=== PATIENT | male | born 1995 | race Hispanic/Latino ===

== ENCOUNTER 2025-02-28 20:11 | Emergency (ER) | payer OTHER, SELFPAY ==
--- OUTSIDE RECORDS SUMMARY | 2025-02-28 20:17 | XMS REPORT | Continuity of Care Document ---
Author Name Unknown Address [address] [facility] [address] [place] [address] [facility] Address [address] [facility] [address] [place] [address] Care Team Providers Care Roller Print Tender Name Role Phone Tanya Rivas NP Primary Care Physician VISIT, NURSE Attending Clinician Unavailable Allergies, Adverse Reactions, Alerts Allergy Name Allergy Type Status Severity Reaction(s) Onset Date Inactive Date Treating Clinician Comments Source amoxcill in (Not Checked) [facility] to adverse reaction to drug Active 2023-07 0-02 00:00: 00 Jefferson Escoto Penicill ins [facility] to adverse reaction to drug Active 3-13 00:00: 00 Jefferson Escoto Penicill ins - CLASS [facility] to adverse reaction to drug Active 2-19 00:00: 00 Jefferson Escoto Medications Ordered Medication Name Filled Medication Name Start Date Stop Date Current Medication? Ordering Clinician Indication Dosage Frequency Signature (SIG) Comments Components Source lamotrigine 25 mg tablet 6- 00:00: 00 Yes 2mg Jefferson Escoto bupropion HCl XL 150 mg 24 hr tablet, extended release -30 00:00: 00 Yes 1mg Jefferson Escoto trazodone 150 mg tablet 6-30 00:00: 00 Yes 1mg Jefferson Escoto lamotrigine 25 mg tablet 0 6-06 00:00: 00 Yes mg Jefferson Escoto trazodone 150 mg tablet 0 6-06 00:00: 00 Yes 1mg Jefferson Escoto losartan 100 mg tablet 2024-0 5-12 00:00: 00 Yes 1mg Jefferson Escoto losartan 100 mg tablet 2024-0 4-11 00:00: 00 Yes 1mg Jefferson Escoto losartan 50 mg tablet 2025-0 3-10 00:00: 00 Yes 1mg Jefferson Escoto propranolol 10 mg tablet 2023-07- 00:00: 00 Yes 1mg Jefferson Escoto trazodone 150 mg tablet 2023-07- 00:00: 00 Yes 1mg Jefferson Escoto Abilify 10 mg tablet 2023-07 00:00: 00 Yes 1mg Jefferson Escoto propranolol 10 mg tablet 2023-07- 00:00: 00 Yes 1mg Jefferson Escoto trazodone 100 mg tablet 2023-07 00:00: 00 Yes 1mg Jefferson Escoto Abilify 10 mg tablet 2023-07 0- 00:00: 00 Yes 1mg Jefferson Escoto propranolol 10 mg tablet 0 8- 00:00: 00 Yes 1mg Jefferson Escoto trazodone 50 mg tablet 0 8- 00:00: 00 Yes 51mg Jefferson Escoto aripiprazol e 5 mg tablet 0 8-30 00:00: 00 Yes 15mg Jefferson Escoto trazodone 50 mg tablet 2023-0 7-20 00:00: 00 Yes 51mg Jefferson Escoto aripiprazol e 5 mg tablet 2023-0 -20 00:00: 00 Yes 15mg Jefferson Escoto trazodone 50 mg tablet 2023-0 -19 00:00: 00 Yes 51mg Jefferson Escoto aripiprazol e 5 mg tablet 2023-0 -19 00:00: 00 Yes 15mg Jefferson Escoto trazodone 50 mg tablet 2023-0 7-18 00:00: 00 Yes 51mg Jefferson Escoto aripiprazol e 5 mg tablet 2023-0 7-18 00:00: 00 Yes 15mg Jefferson Escoto aripiprazol e 5 mg tablet 2023-0 7-17 00:00: 00 Yes 15mg Jefferson Escoto Abilify 10 mg tablet 2023-0 6-27 00:00: 00 Yes mg Jefferson Escoto TAKE 1/2 TABLET AT BEDTIME. 2023-0 3-13 00:00: 00 05-10 00:00 :00 No 50 Jefferson Escoto TAKE 1 CAPSULE BY MOUTH DAILY 10-05 00:00: 00 12-02 00:00 :00 No 20 Jefferson Escoto losartan 50 mg tablet 09-28 00:00: 00 Yes 1mg Jefferson Escoto hydroxyzine HCl 25 mg tablet 09-28 00:00: 00 Yes 1mg Jefferson Escoto Prozac 10 mg capsule 09-28 00:00: 00 Yes 1mg Jefferson Escoto TAKE 1 TAB EVERY 6 HOURS NEEDED FOR ANXIETY 09-22 00:00: 00 12-02 00:00 :00 No 25 Jefferson Escoto TAKE ONE TABLET BY MOUTH DAILY 09-22 00:00: 00 12-02 00:00 :00 No 10 Jefferson Escoto TAKE 1 TABLET DAILY. 09-13 00:00: 00 Yes 50 Jefferson Escoto Vital Signs Vital Name Observation Time Observation Value Comments S elsy BP Systolic 2025-02-13 15:42:00 145 mm[Hg] Step hen Aziza Escoto BP Diastolic 2025-02-13 15:42:00 96 mm[Hg] Travis phen Aziza Escoto Weight Measured 2025-02-13 15:42:00 272.00 pounds Jefferson Escoto Height Measured 2025-02-13 15:42:00 69.69 inches Jefferson Escoto Body Temperature 2025-02-13 15:42:00 97.90 degrees Jefferson Escoto Heart Rate 2025-02-13 15:42:00 74.00 /min Ashlee en F Jevon Respiratory Rate 2025-02-13 15:42:00 Jefferson Aziza Escoto BP Systolic 2024-12-04 09:35:00 128 mm[Hg] Step hen Aziza Escoto BP Diastolic 2024-12-04 09:35:00 92 mm[Hg] Travis phen Aziza Escoto Weight Measured 2024-12-04 09:35:00 273.80 pounds Jefferson Escoto Height Measured 2024-12-04 09:35:00 69.69 inches Jefferson Escoto Body Temperature 2024-12-04 09:35:00 98.20 degrees Jefferson Escoto Heart Rate 2024-12-04 09:35:00 61.00 /min Ashlee en F Jevon Respiratory Rate 2024-12-04 09:35:00 18.00 /min Jefferson F Jevon BP Systolic 2024-11-27 08:30:00 139 mm[Hg] Step hen F Jevon BP Diastolic 2024-11-27 08:30:00 94 mm[Hg] Travis phen F Jevon Weight Measured 2024-11-27 08:30:00 274.20 pounds Jefferson F Jevon Height Measured 2024-11-27 08:30:00 69.69 inches Jefferson F Jevon Body Temperature 2024-11-27 08:30:00 97.90 degrees Jefferson F Jevon Heart Rate 2024-11-27 08:30:00 62.00 /min Ashlee en F Jevon Respiratory Rate 2024-11-27 08:30:00 Jefferson F Jevon BP Systolic 2024-11-03 09:27:00 144 mm[Hg] Step hen F Jevon BP Diastolic 2024-11-03 09:27:00 106 mm[Hg] Travis phen F Jevon Weight Measured 2024-11-03 09:27:00 272.00 pounds Jefferson F Jevon Height Measured 2024-11-03 09:27:00 69.69 inches Jefferson F Jevon Body Temperature 2024-11-03 09:27:00 Jefferson F Jevon Heart Rate 2024-11-03 09:27:00 65.00 /min Ashlee en F Jevon Respiratory Rate 2024-11-03 09:27:00 18.00 /min Jefferson F Jevon BP Systolic 2024-10-09 16:41:00 139 mm[Hg] Step hen F Jevon BP Diastolic 2024-10-09 16:41:00 102 mm[Hg] Travis phen F Jevon Weight Measured 2024-10-09 16:41:00 268.80 pounds Jefferson F Jevon Height Measured 2024-10-09 16:41:00 69.69 inches Jefferson F Jevon Body Temperature 2024-10-09 16:41:00 98.70 degrees Jefferson F Jevon Heart Rate 2024-10-09 16:41:00 110.00 /min Step hen F Jevon Respiratory Rate 2024-10-09 16:41:00 14.00 /min Jefferson F Jevon BP Systolic 2024-10-02 15:08:00 152 mm[Hg] Step hen F Jevon BP Diastolic 2024-10-02 15:08:00 108 mm[Hg] Travis phen F Jevon Weight Measured 2024-10-02 15:08:00 269.60 pounds Jefferson F Jevon Height Measured 2024-10-02 15:08:00 69.69 inches Jefferson F Jevon Body Temperature 2024-10-02 15:08:00 98.10 degrees Jefferson F Jevon Heart Rate 2024-10-02 15:08:00 82.00 /min Ashlee en F Jevon Respiratory Rate 2024-10-02 15:08:00 14.00 /min Jefferson F Jevon BP Systolic 2023-09-29 08:08:00 137 mm[Hg] Step hen F Jevon BP Diastolic 2023-09-29 08:08:00 106 mm[Hg] Travis phen F Jevon Weight Measured 2023-09-29 08:08:00 267.20 pounds Jefferson F Jevon Height Measured 2023-09-29 08:08:00 69.69 inches Jefferson F Jevon Body Temperature 2023-09-29 08:08:00 98.10 degrees Jefferson F Jevon Heart Rate 2023-09-29 08:08:00 62.00 /min Ashlee en F Jevon Respiratory Rate 2023-09-29 08:08:00 18.00 /min Jefferson F Jevon BP Systolic 2023-09-22 10:07:00 151 mm[Hg] Step hen F Jevon BP Diastolic 2023-09-22 10:07:00 95 mm[Hg] Travis phen F Jevon Weight Measured 2023-09-22 10:07:00 263.20 pounds Jefferson F Jevon Height Measured 2023-09-22 10:07:00 69.69 inches Jefferson F Jevon Body Temperature 2023-09-22 10:07:00 98.30 degrees Jefferson F Jevon Heart Rate 2023-09-22 10:07:00 76.00 /min Ashlee en F Jevon Respiratory Rate 2023-09-22 10:07:00 18.00 /min Jefferson F Jevon BP Systolic 2023-09-13 14:20:00 156 mm[Hg] Step hen F Jevon BP Diastolic 2023-09-13 14:20:00 102 mm[Hg] Travis phen F Jevon Weight Measured 2023-09-13 14:20:00 260.80 pounds Jefferson Escoto Height Measured 2023-09-13 14:20:00 70.50 inches Jefferson Escoto Body Temperature 2023-09-13 14:20:00 98.00 degrees Jefferson Escoto Heart Rate 2023-09-13 14:20:00 74.00 /min Ashlee Escoto Respiratory Rate 2023-09-13 14:20:00 18.00 /min Jefferson Escoto Encounters Start Date/Time End Date/Time Encounter Type Admission Type Attending [facility] Care Department Encounter ID Source 2022-08-05 12:18:20 Outpatient [facility] [id number] [facility] 2025-02-19 10:45:01 2025-02-19 10:45:01 Outpatient SFA SFA [id number] Jefferson Escoto 2025-02-14 08:45:42 2025-02-14 08:45:42 Outpatient SFA SFA [id number] Jefferson Escoto 2025-02-13 15:38:48 2025-02-13 15:38:48 Outpatient SFA SFA [id number] Jefferson Escoto 2025-02-13 00:00:00 2025-02-13 00:00:00 Outpatient Visit SFA [id number] Jefferson Escoto 2025-01-19 11:16:53 2025-01-19 11:16:53 Outpatient SFA SFA [id number] Jefferson Escoto 2024-12-29 14:26:28 2024-12-29 14:26:28 Outpatient SFA SFA [id number] Jefferson Escoto 2024-12-08 10:43:54 2024-12-08 10:43:54 Outpatient SFA SFA [id number] Jefferson Escoto 2024-12-04 09:29:32 2024-12-04 09:29:32 Outpatient SFA SFA [id number] Jefferson Escoto 2024-12-04 00:00:00 2024-12-04 00:00:00 Outpatient Visit SFA [id number] Jefferson Escoto 2024-11-27 08:20:06 2024-11-27 08:20:06 Outpatient SFA SFA [id number] Jefferson Escoto 2024-11-27 00:00:00 2024-11-27 00:00:00 Outpatient Visit SFA [id number] Jefferson Escoto 2024-11-24 10:47:28 2024-11-24 10:47:28 Outpatient SFA SFA [id number] Jefferson Escoto 2024-11-13 09:42:32 2024-11-13 09:42:32 Outpatient SFA SFA [id number] Jefferson Escoto 2024-11-10 11:57:02 2024-11-10 11:57:02 Outpatient SFA SFA [id number] Jefferson Escoto 2024-11-03 09:22:26 2024-11-03 09:22:26 Outpatient SFA SFA [id number] Jefferson Escoto 2024-11-03 00:00:00 2024-11-03 00:00:00 Outpatient Visit SFA [id number] Jefferson Escoto 2024-10-23 16:05:29 2024-10-23 16:05:29 Outpatient SFA SFA [id number] Jefferson Escoto 2024-10-20 11:15:17 2024-10-20 11:15:17 Outpatient SFA SFA [id number] Jefferson Escoto 2024-10-09 16:37:32 2024-10-09 16:37:32 Outpatient SFA SFA [id number] Jefferson Escoto 2024-10-09 00:00:00 2024-10-09 00:00:00 Outpatient Visit SFA [id number] Jefferson Escoto 2024-10-06 11:18:15 2024-10-06 11:18:15 Outpatient SFA SFA [id number] Jefferson Escoto 2024-10-03 08:33:05 2024-10-03 08:33:05 Outpatient SFA SFA [id number] Jefferson Escoto 2024-10-02 14:31:42 2024-10-02 14:31:42 Outpatient SFA SFA [id number] Jefferson Escoto 2024-10-02 00:00:00 2024-10-02 00:00:00 Outpatient Visit [facility] [id number] Jefferson Escoto 2024-02-16 10:48:30 2024-02-16 10:48:30 Outpatient SFA SFA [id number] Jefferson Escoto 2023-10-14 08:03:56 2023-10-14 08:03:56 Outpatient SFA SFA [id number] Jefferson Escoto 2023-10-06 10:27:20 2023-10-06 10:27:20 Outpatient SFA SFA [id number] Jefferson Escoto 2023-09-29 07:55:34 2023-09-29 07:55:34 Outpatient SFA SFA [id number] Jefferson Escoto 2023-09-22 10:00:51 2023-09-22 10:00:51 Outpatient SFA SFA [id number] Jefferson Escoto 2023-09-15 09:30:24 2023-09-15 09:30:24 Outpatient SFA SFA [id number] Jefferson Escoto 2023-09-13 14:09:37 2023-09-13 14:09:37 Outpatient SFA SFA [id number] Jefferson Escoto 2023-09-13 00:00:00 2023-09-13 00:00:00 Outpatient Visit [facility] [id number] Jefferson Escoto 2019-01-11 13:00:00 2019-01-11 13:00:00 Appointmen t; VISIT, NURSE VISIT, NURSE [facility] [id number] [place] [facility] Results Test Description Test Time Test Comments Results Result Co mments Source Jefferson F AustinHIV 1/2 AB DIFF (SUPPLEMENTAL USE ONLY) [ADDED]2024-12-03 00:00:00* Test Item Value Reference Range Interpretation Comme nts HIV 1 ANTIBODY (test code = 46380-4) NEGATIVE HIV 2 ANTIBODY (test code = 59043-7) NEGATIVE Jefferson F AustinHIV 1 RNA, QL REAL TIME PCR [ADDED]2024-12-03 00:00:00* Test Item Value Reference Range Interpretation Comme nts HIV 1 RNA, QL REAL TIME PCR (test code = 95712-1) Not Detected Jefferson F AustinHIV 1/2 ANTIGEN/ANTIBODY,FOURTH GENERATION [id number] 00:00:00* Test Item Value Reference Range Interpretation Comme nts HIV AG/AB, 4TH GEN (test code = 42484-7) REPEATEDLY REACTIVE Jefferson F AustinHIV 1/2 AB DIFF (SUPPLEMENTAL USE ONLY) [ADDED]2024-12-03 00:00:00* Test Item Value Reference Range Interpretation Comme nts HIV 1 ANTIBODY (test code = 71901-1) NEGATIVE HIV 2 ANTIBODY (test code = 13471-3) NEGATIVE [facility] F AustinHIV 1 RNA, QL REAL TIME PCR [ADDED]2024-12-03 00:00:00* Test Item Value Reference Range Interpretation Comme nts HIV 1 RNA, QL REAL TIME PCR (test code = 86335-1) Not Detected Jefferson F AustinHIV 1 RNA, QL [id number] 00:00:00* Test Item Value Reference Range Interpretation Comme nts HIV 1 RNA, QL REAL TIME PCR (test code = 44930-7) Not Detected Jefferson F AustinHIV 1 RNA, QL [id number] 00:00:00* Test Item Value Reference Range Interpretation Comme nts HIV 1 RNA, QL REAL TIME PCR (test code = 03235-3) Not Detected Jefferson F AustinC-REACTIVE [id number] 00:00:00* Test Item Value Reference Range Interpretation Comme nts C-REACTIVE PROTEIN (test cod e = 1988-5) 14.4 mg/L Jefferson F AustinANA SCREEN, IFA, W/REFL TITER AND [id number] 00:00:00* Test Item Value Reference Range Interpretation Comme nts DANY SCREEN, IFA (test code = 89087-6) NEGATIVE Jefferson F AustinRHEUMATOID [id number] 00:00:00* Test Item Value Reference Range Interpretation Comme nts RHEUMATOID FACTOR (test code = 96107-7) <10 IU/mL Jefferson F AustinSED RATE BY MODIFIED WESTERGREN [ADDED]2024-11-15 00:00:00* Test Item Value Reference Range Interpretation Comme nts SED RATE BY MODIFIED EVELINERG RUTH (test code = 4537-7) 6 mm/h Jefferson F AustinC-REACTIVE [id number] 00:00:00* Test Item Value Reference Range Interpretation Comme nts C-REACTIVE PROTEIN (test cod e = 1987-11) 14.4 mg/L Jefferson F AustinANA SCREEN, IFA, W/REFL TITER AND [id number] 00:00:00* Test Item Value Reference Range Interpretation Comme nts DANY SCREEN, IFA (test code = 03458-0) NEGATIVE Jefferson F AustinRHEUMATOID [id number] 00:00:00* Test Item Value Reference Range Interpretation Comme nts RHEUMATOID FACTOR (test code = 56980-7) <10 IU/mL Jefferson F AustinSED RATE BY MODIFIED WESTERGREN [ADDED]2024-11-15 00:00:00* Test Item Value Reference Range Interpretation Comme nts SED RATE BY MODIFIED CARINA MIRANDA (test code = 4537-7) 6 mm/h Jefferson F AustinC-REACTIVE [id number] 00:00:00* Test Item Value Reference Range Interpretation Comme nts C-REACTIVE PROTEIN (test cod e = 1987-11) 14.4 mg/L Jefferson F AustinANA SCREEN, IFA, W/REFL TITER AND [id number] 00:00:00* Test Item Value Reference Range Interpretation Comme nts DANY SCREEN, IFA (test code = 61467-9) NEGATIVE Jefferson F AustinRHEUMATOID [id number] 00:00:00* Test Item Value Reference Range Interpretation Comme nts RHEUMATOID FACTOR (test code = 90869-0) <10 IU/mL Jefferson F AustinSED RATE BY MODIFIED WESTERGREN [ADDED]2024-11-15 00:00:00* Test Item Value Reference Range Interpretation Comme nts SED RATE BY MODIFIED EVELINERG RUTH (test code = 4537-7) 6 mm/h Jefferson F AustinHIV 1/2 ANTIGEN/ANTIBODY,FOURTH GENERATION [id number] 00:00:00* Test Item Value Reference Range Interpretation Comme nts HIV AG/AB, 4TH GEN (test code = 81922-7) REPEATEDLY REACTIVE Jefferson F AustinHIV 1/2 AB DIFF (SUPPLEMENTAL USE ONLY) [ADDED]2024-11-08 00:00:00* Test Item Value Reference Range Interpretation Comme nts HIV 1 ANTIBODY (test code = 12371-2) NEGATIVE HIV 2 ANTIBODY (test code = 21422-1) NEGATIVE Jefferson F AustinHIV 1 RNA, QL REAL TIME PCR [ADDED]2024-11-08 00:00:00* Test Item Value Reference Range Interpretation Comme nts HIV 1 RNA, QL REAL TIME PCR (test code = 31834-2) Not Detected Jefferson F AustinHIV 1/2 ANTIGEN/ANTIBODY,FOURTH GENERATION [id number] 00:00:00* Test Item Value Reference Range Interpretation Comme nts HIV AG/AB, 4TH GEN (test code = 18873-9) REPEATEDLY REACTIVE Jefferson F AustinHIV 1/2 AB DIFF (SUPPLEMENTAL USE ONLY) [ADDED]2024-11-08 00:00:00* Test Item Value Reference Range Interpretation Comme nts HIV 1 ANTIBODY (test code = 68367-4) NEGATIVE HIV 2 ANTIBODY (test code = 38789-5) NEGATIVE Jefferson F AustinHIV 1 RNA, QL REAL TIME PCR [ADDED]2024-11-08 00:00:00* Test Item Value Reference Range Interpretation Comme nts HIV 1 RNA, QL REAL TIME PCR (test code = 43493-4) Not Detected Jefferson F AustinHIV 1/2 ANTIGEN/ANTIBODY,FOURTH GENERATION [id number] 00:00:00* Test Item Value Reference Range Interpretation Comme nts HIV AG/AB, 4TH GEN (test code = 44259-6) REPEATEDLY REACTIVE Jefferson F AustinHIV 1/2 AB DIFF (SUPPLEMENTAL USE ONLY) [ADDED]2024-11-08 00:00:00* Test Item Value Reference Range Interpretation Comme nts HIV 1 ANTIBODY (test code = 13701-3) NEGATIVE HIV 2 ANTIBODY (test code = 99525-7) NEGATIVE Jefferson F AustinHIV 1 RNA, QL REAL TIME PCR [ADDED]2024-11-08 00:00:00* Test Item Value Reference Range Interpretation Comme nts HIV 1 RNA, QL REAL TIME PCR (test code = 83049-0) Not Detected Jefferson EscotoRPR (MONITOR) W/REFL [id number] 00:00:00* Test Item Value Reference Range Interpretation Comme nts RPR (MONITOR) W/REFL TITER ( test code = 95239-3) NON-REACTIVE Jefferson F JevonTRICHOMONAS VAGINALIS RNA QUALITATIVE TMA, [id number] 00:00:00* Test Item Value Reference Range Interpretation Comme nts TRICHOMONAS VAGINALIS RNA QUALITATIVE TMA, MALES (test code = 78940-6) NOT DETECTED Jefferson F AustinHIV 1/2 AB DIFF (SUPPLEMENTAL USE ONLY) [ADDED]2024-10-08 00:00:00* Test Item Value Reference Range Interpretation Comme nts HIV 1 ANTIBODY (test code = 00081-7) NEGATIVE HIV 2 ANTIBODY (test code = 18979-8) NEGATIVE Jefferson F AustinHIV 1 RNA, QL REAL TIME PCR [ADDED]2024-10-08 00:00:00* Test Item Value Reference Range Interpretation Comme nts HIV 1 RNA, QL REAL TIME PCR (test code = 50428-4) Not Detected Jefferson EscotoCHLAMYDIA/N. GONORRHOEAE RNA, [id number] 00:00:00* Test Item Value Reference Range Interpretation Comme nts CHLAMYDIA TRACHOMATIS RNA, T MA, UROGENITAL (test code = 88274-8) NOT DETECTED NEISSERIA GONORRHOEAE RNA, T MA, UROGENITAL (test code = 29011-6) NOT DETECTED Jefferson EscotoHEPATITIS PANEL, [id number] 00:00:00* Test Item Value Reference Range Interpretation Comme nts HEPATITIS A AB, TOTAL (test code = 97962-1) REACTIVE HEPATITIS B SURFACE ANTIBODY QL (test code = 25078-6) NON-REACTIVE HEPATITIS B SURFACE ANTIGEN (test code = 5196-1) NON-REACTIVE CONFIRMATION (test code = 7905-3) DNR HEPATITIS B CORE AB TOTAL (t est code = 26217-3) NON-REACTIVE HEPATITIS C ANTIBODY (test c ode = 80213-3) NON-REACTIVE Jefferson F AustinHIV 1/2 ANTIGEN/ANTIBODY,FOURTH GENERATION [id number] 00:00:00* Test Item Value Reference Range Interpretation Comme nts HIV AG/AB, 4TH GEN (test code = 78796-2) REPEATEDLY REACTIVE Jefferson EscotoRPR (MONITOR) W/REFL [id number] 00:00:00* Test Item Value Reference Range Interpretation Comme nts RPR (MONITOR) W/REFL TITER ( test code = 34763-9) NON-REACTIVE Jefferson EscotoTRICHOMONAS VAGINALIS RNA QUALITATIVE TMA, [id number] 00:00:00* Test Item Value Reference Range Interpretation Comme nts TRICHOMONAS VAGINALIS RNA QUALITATIVE TMA, MALES (test code = 21823-6) NOT DETECTED Jefferson Ervin AustinHIV 1/2 AB DIFF (SUPPLEMENTAL USE ONLY) [ADDED]2024-10-08 00:00:00* Test Item Value Reference Range Interpretation Comme nts HIV 1 ANTIBODY (test code = 81236-0) NEGATIVE HIV 2 ANTIBODY (test code = 22689-1) NEGATIVE Jefferson EscotoHIV 1 RNA, QL REAL TIME PCR [ADDED]2024-10-08 00:00:00* Test Item Value Reference Range Interpretation Comme nts HIV 1 RNA, QL REAL TIME PCR (test code = 84772-3) Not Detected Jefferson EscotoCHLAMYDIA/N. GONORRHOEAE RNA, [id number] 00:00:00* Test Item Value Reference Range Interpretation Comme nts CHLAMYDIA TRACHOMATIS RNA, T MA, UROGENITAL (test code = 30459-2) NOT DETECTED NEISSERIA GONORRHOEAE RNA, T MA, UROGENITAL (test code = 22293-7) NOT DETECTED Jefferson EscotoHEPATITIS PANEL, [id number] 00:00:00* Test Item Value Reference Range Interpretation Comme nts HEPATITIS A AB, TOTAL (test code = 56073-4) REACTIVE HEPATITIS B SURFACE ANTIBODY QL (test code = 67328-8) NON-REACTIVE HEPATITIS B SURFACE ANTIGEN (test code = 5196-1) NON-REACTIVE CONFIRMATION (test code = 7905-3) DNR HEPATITIS B CORE AB TOTAL (t est code = 95160-0) NON-REACTIVE HEPATITIS C ANTIBODY (test c ode = 10403-5) NON-REACTIVE Jefferson Ervin AustinHIV 1/2 ANTIGEN/ANTIBODY,FOURTH GENERATION [id number] 00:00:00* Test Item Value Reference Range Interpretation Comme nts HIV AG/AB, 4TH GEN (test code = 85458-2) REPEATEDLY REACTIVE Jefferson EscotoRPR (MONITOR) W/REFL [id number] 00:00:00* Test Item Value Reference Range Interpretation Comme nts RPR (MONITOR) W/REFL TITER ( test code = 09717-2) NON-REACTIVE Jefferson EscotoTRICHOMONAS VAGINALIS RNA QUALITATIVE TMA, [id number] 00:00:00* Test Item Value Reference Range Interpretation Comme nts TRICHOMONAS VAGINALIS RNA QUALITATIVE TMA, MALES (test code = 33575-4) NOT DETECTED Jefferson Ervin AustinHIV 1/2 AB DIFF (SUPPLEMENTAL USE ONLY) [ADDED]2024-10-08 00:00:00* Test Item Value Reference Range Interpretation Comme nts HIV 1 ANTIBODY (test code = 70578-4) NEGATIVE HIV 2 ANTIBODY (test code = 17667-9) NEGATIVE Jefferson EscotoHIV 1 RNA, QL REAL TIME PCR [ADDED]2024-10-08 00:00:00* Test Item Value Reference Range Interpretation Comme nts HIV 1 RNA, QL REAL TIME PCR (test code = 18022-5) Not Detected Jefferson EscotoCHLAMYDIA/N. GONORRHOEAE RNA, [id number] 00:00:00* Test Item Value Reference Range Interpretation Comme nts CHLAMYDIA TRACHOMATIS RNA, T MA, UROGENITAL (test code = 34264-5) NOT DETECTED NEISSERIA GONORRHOEAE RNA, T MA, UROGENITAL (test code = 15650-0) NOT DETECTED Jefferson EscotoHEPATITIS PANEL, [id number] 00:00:00* Test Item Value Reference Range Interpretation Comme nts HEPATITIS A AB, TOTAL (test code = 79070-2) REACTIVE HEPATITIS B SURFACE ANTIBODY QL (test code = 35938-7) NON-REACTIVE HEPATITIS B SURFACE ANTIGEN (test code = 5196-1) NON-REACTIVE CONFIRMATION (test code = 7905-3) DNR HEPATITIS B CORE AB TOTAL (t est code = 16079-7) NON-REACTIVE HEPATITIS C ANTIBODY (test c ode = 00092-9) NON-REACTIVE Jefferson Ervin AustinHIV 1/2 ANTIGEN/ANTIBODY,FOURTH GENERATION [id number] 00:00:00* Test Item Value Reference Range Interpretation Comme nts HIV AG/AB, 4TH GEN (test code = 34165-0) REPEATEDLY REACTIVE Jefferson EscotoRPR (MONITOR) W/REFL [id number] 00:00:00* Test Item Value Reference Range Interpretation Comme nts RPR (MONITOR) W/REFL TITER ( test code = 70853-2) NON-REACTIVE Jefferson EscotoTRICHOMONAS VAGINALIS RNA QUALITATIVE TMA, [id number] 00:00:00* Test Item Value Reference Range Interpretation Comme nts TRICHOMONAS VAGINALIS RNA QUALITATIVE TMA, MALES (test code = 65374-5) NOT DETECTED Jefferson Ervin AustinHIV 1/2 AB DIFF (SUPPLEMENTAL USE ONLY) [ADDED]2024-10-08 00:00:00* Test Item Value Reference Range Interpretation Comme nts HIV 1 ANTIBODY (test code = 50002-3) NEGATIVE HIV 2 ANTIBODY (test code = 11156-4) NEGATIVE Jefferson EscotoHIV 1 RNA, QL REAL TIME PCR [ADDED]2024-10-08 00:00:00* Test Item Value Reference Range Interpretation Comme nts HIV 1 RNA, QL REAL TIME PCR (test code = 11008-2) Not Detected Jefferson EscotoCHLAMYDIA/N. GONORRHOEAE RNA, [id number] 00:00:00* Test Item Value Reference Range Interpretation Comme nts CHLAMYDIA TRACHOMATIS RNA, T MA, UROGENITAL (test code = 88961-5) NOT DETECTED NEISSERIA GONORRHOEAE RNA, T MA, UROGENITAL (test code = 04761-9) NOT DETECTED Jefferson EscotoHEPATITIS PANEL, [id number] 00:00:00* Test Item Value Reference Range Interpretation Comme nts HEPATITIS A AB, TOTAL (test code = 31840-1) REACTIVE HEPATITIS B SURFACE ANTIBODY QL (test code = 29263-4) NON-REACTIVE HEPATITIS B SURFACE ANTIGEN (test code = 5196-1) NON-REACTIVE CONFIRMATION (test code = 7905-3) DNR HEPATITIS B CORE AB TOTAL (t est code = 43703-9) NON-REACTIVE HEPATITIS C ANTIBODY (test c ode = 63589-0) NON-REACTIVE Jefferson Ervin AustinHIV 1/2 ANTIGEN/ANTIBODY,FOURTH GENERATION [id number] 00:00:00* Test Item Value Reference Range Interpretation Comme nts HIV AG/AB, 4TH GEN (test code = 97195-0) REPEATEDLY REACTIVE Jefferson EscotoRPR (MONITOR) W/REFL [id number] 00:00:00* Test Item Value Reference Range Interpretation Comme nts RPR (MONITOR) W/REFL TITER ( test code = 86858-9) NON-REACTIVE Jefferson EscotoTRICHOMONAS VAGINALIS RNA QUALITATIVE TMA, [id number] 00:00:00* Test Item Value Reference Range Interpretation Comme nts TRICHOMONAS VAGINALIS RNA QUALITATIVE TMA, MALES (test code = 64522-9) NOT DETECTED Jefferson Ervin AustinHIV 1/2 AB DIFF (SUPPLEMENTAL USE ONLY) [ADDED]2024-10-08 00:00:00* Test Item Value Reference Range Interpretation Comme nts HIV 1 ANTIBODY (test code = 07985-3) NEGATIVE HIV 2 ANTIBODY (test code = 90713-8) NEGATIVE Jefferson EscotoHIV 1 RNA, QL REAL TIME PCR [ADDED]2024-10-08 00:00:00* Test Item Value Reference Range Interpretation Comme nts HIV 1 RNA, QL REAL TIME PCR (test code = 31667-9) Not Detected Jefferson EscotoCHLAMYDIA/N. GONORRHOEAE RNA, [id number] 00:00:00* Test Item Value Reference Range Interpretation Comme nts CHLAMYDIA TRACHOMATIS RNA, T MA, UROGENITAL (test code = 19733-0) NOT DETECTED NEISSERIA GONORRHOEAE RNA, T MA, UROGENITAL (test code = 39622-8) NOT DETECTED Jefferson EscotoHEPATITIS PANEL, [id number] 00:00:00* Test Item Value Reference Range Interpretation Comme nts HEPATITIS A AB, TOTAL (test code = 47489-5) REACTIVE HEPATITIS B SURFACE ANTIBODY QL (test code = 46116-5) NON-REACTIVE HEPATITIS B SURFACE ANTIGEN (test code = 5196-1) NON-REACTIVE CONFIRMATION (test code = 7905-3) DNR HEPATITIS B CORE AB TOTAL (t est code = 49435-0) NON-REACTIVE HEPATITIS C ANTIBODY (test c ode = 97661-6) NON-REACTIVE [facility] Ervin AustinHIV 1/2 ANTIGEN/ANTIBODY,FOURTH GENERATION [id number] 00:00:00* Test Item Value Reference Range Interpretation Comme nts HIV AG/AB, 4TH GEN (test code = 39112-1) REPEATEDLY REACTIVE Jefferson EscotoCOMPREHENSIVE METABOLIC [id number] 00:00:00* Test Item Value Reference Range Interpretation Comme nts GLUCOSE (test code = 2345-7) 88 mg/dL UREA NITROGEN (BUN) (test code = 3094-0) 8 mg/dL CREATININE (test code = 2160-0) 1.01 mg/dL EGFR (test code = 81834-9) 104 mL/min/1.73m2 BUN/CREATININE RATIO (test code = 3097-3) SEE NOTE: (calc) SODIUM (test code = 2951-2) 137 mmol/L POTASSIUM (test code = 2823-3) 4.3 mmol/L CHLORIDE (test code = 2075-0) 102 mmol/L CARBON DIOXIDE (test code = 2027-9) 31 mmol/L CALCIUM (test code = 74453-2) 9.7 mg/dL PROTEIN, TOTAL (test code = 2885-2) 7.6 g/dL ALBUMIN (test code = 1751-7) 4.7 g/dL GLOBULIN (test code = 08255-0) 2.9 g/dL(calc) ALBUMIN/GLOBULIN RATIO (test code = 1759-0) 1.6 (calc) BILIRUBIN, TOTAL (test code = 1975-2) 1.8 mg/dL ALKALINE PHOSPHATASE (test code = 6768-6) 93 U/L AST (test code = 1920-8) 19 U/L ALT (test code = 1742-6) 20 U/L Jefferson EscotoLIPID [id number] 00:00:00* Test Item Value Reference Range Interpretation Comme nts CHOLESTEROL, TOTAL (test cod e = 2093-3) 183 mg/dL HDL CHOLESTEROL (test code = 2085-9) 37 mg/dL TRIGLYCERIDES (test code = 2571-8) 196 mg/dL LDL-CHOLESTEROL (test code = 23233-9) 114 mg/dL(calc) CHOL/HDLC RATIO (test code = 9830-1) 4.9 (calc) NON HDL CHOLESTEROL (test code = 86909-9) 146 mg/dL(calc) Jefferson F AustinCOMPREHENSIVE METABOLIC [id number] 00:00:00* Test Item Value Reference Range Interpretation Comme nts GLUCOSE (test code = 2345-7) 88 mg/dL UREA NITROGEN (BUN) (test code = 3094-0) 8 mg/dL CREATININE (test code = 2160-0) 1.01 mg/dL EGFR (test code = 64105-9) 104 mL/min/1.73m2 BUN/CREATININE RATIO (test code = 3097-3) SEE NOTE: (calc) SODIUM (test code = 2951-2) 137 mmol/L POTASSIUM (test code = 2823-3) 4.3 mmol/L CHLORIDE (test code = 2075-0) 102 mmol/L CARBON DIOXIDE (test code = 2027-9) 31 mmol/L CALCIUM (test code = 26035-3) 9.7 mg/dL PROTEIN, TOTAL (test code = 2885-2) 7.6 g/dL ALBUMIN (test code = 1751-7) 4.7 g/dL GLOBULIN (test code = 75653-8) 2.9 g/dL(calc) ALBUMIN/GLOBULIN RATIO (test code = 1759-0) 1.6 (calc) BILIRUBIN, TOTAL (test code = 1975-2) 1.8 mg/dL ALKALINE PHOSPHATASE (test code = 6768-6) 93 U/L AST (test code = 1920-8) 19 U/L ALT (test code = 1742-6) 20 U/L Jefferson Ervin AustinLIPID [id number] 00:00:00* Test Item Value Reference Range Interpretation Comme nts CHOLESTEROL, TOTAL (test cod e = 2093-3) 183 mg/dL HDL CHOLESTEROL (test code = 2085-9) 37 mg/dL TRIGLYCERIDES (test code = 2571-8) 196 mg/dL LDL-CHOLESTEROL (test code = 74157-2) 114 mg/dL(calc) CHOL/HDLC RATIO (test code = 9830-1) 4.9 (calc) NON HDL CHOLESTEROL (test code = 55888-7) 146 mg/dL(calc) Jefferson EscotoCOMPREHENSIVE METABOLIC [id number] 00:00:00* Test Item Value Reference Range Interpretation Comme nts GLUCOSE (test code = 2345-7) 88 mg/dL UREA NITROGEN (BUN) (test code = 3094-0) 8 mg/dL CREATININE (test code = 2160-0) 1.01 mg/dL EGFR (test code = 18307-5) 104 mL/min/1.73m2 BUN/CREATININE RATIO (test code = 3097-3) SEE NOTE: (calc) SODIUM (test code = 2951-2) 137 mmol/L POTASSIUM (test code = 2823-3) 4.3 mmol/L CHLORIDE (test code = 2075-0) 102 mmol/L CARBON DIOXIDE (test code = 2027-9) 31 mmol/L CALCIUM (test code = 63858-0) 9.7 mg/dL PROTEIN, TOTAL (test code = 2885-2) 7.6 g/dL ALBUMIN (test code = 1751-7) 4.7 g/dL GLOBULIN (test code = 13065-1) 2.9 g/dL(calc) ALBUMIN/GLOBULIN RATIO (test code = 1759-0) 1.6 (calc) BILIRUBIN, TOTAL (test code = 1975-2) 1.8 mg/dL ALKALINE PHOSPHATASE (test code = 6768-6) 93 U/L AST (test code = 1920-8) 19 U/L ALT (test code = 1742-6) 20 U/L Jefferson EscotoLIPID [id number] 00:00:00* Test Item Value Reference Range Interpretation Comme nts CHOLESTEROL, TOTAL (test cod e = 2093-3) 183 mg/dL HDL CHOLESTEROL (test code = 2085-9) 37 mg/dL TRIGLYCERIDES (test code = 2571-8) 196 mg/dL LDL-CHOLESTEROL (test code = 79943-1) 114 mg/dL(calc) CHOL/HDLC RATIO (test code = 9830-1) 4.9 (calc) NON HDL CHOLESTEROL (test code = 74994-0) 146 mg/dL(calc) Jefferson EscotoCOMPREHENSIVE METABOLIC [id number] 00:00:00* Test Item Value Reference Range Interpretation Comme nts GLUCOSE (test code = 2345-7) 88 mg/dL UREA NITROGEN (BUN) (test code = 3094-0) 8 mg/dL CREATININE (test code = 2160-0) 1.01 mg/dL EGFR (test code = 48647-8) 104 mL/min/1.73m2 BUN/CREATININE RATIO (test code = 3097-3) SEE NOTE: (calc) SODIUM (test code = 2951-2) 137 mmol/L POTASSIUM (test code = 2823-3) 4.3 mmol/L CHLORIDE (test code = 2075-0) 102 mmol/L CARBON DIOXIDE (test code = 8-9) 31 mmol/L CALCIUM (test code = 35687-9) 9.7 mg/dL PROTEIN, TOTAL (test code = 2885-2) 7.6 g/dL ALBUMIN (test code = 1751-7) 4.7 g/dL GLOBULIN (test code = 37831-7) 2.9 g/dL(calc) ALBUMIN/GLOBULIN RATIO (test code = 1759-0) 1.6 (calc) BILIRUBIN, TOTAL (test code = 1975-2) 1.8 mg/dL ALKALINE PHOSPHATASE (test code = 6768-6) 93 U/L AST (test code = 1920-8) 19 U/L ALT (test code = 1742-6) 20 U/L Jefferson Ervin LebeauLIPID [id number] 00:00:00* Test Item Value Reference Range Interpretation Comme nts CHOLESTEROL, TOTAL (test cod e = 2093-3) 183 mg/dL HDL CHOLESTEROL (test code = 2085-9) 37 mg/dL TRIGLYCERIDES (test code = 2571-8) 196 mg/dL LDL-CHOLESTEROL (test code = 34743-3) 114 mg/dL(calc) CHOL/HDLC RATIO (test code = 9830-1) 4.9 (calc) NON HDL CHOLESTEROL (test code = 69499-6) 146 mg/dL(calc) Jefferson EscotoCOMPREHENSIVE METABOLIC [id number] 00:00:00* Test Item Value Reference Range Interpretation Comme nts GLUCOSE (test code = 2345-7) 88 mg/dL UREA NITROGEN (BUN) (test code = 3094-0) 8 mg/dL CREATININE (test code = 2160-0) 1.01 mg/dL EGFR (test code = 87465-6) 104 mL/min/1.73m2 BUN/CREATININE RATIO (test code = 3097-3) SEE NOTE: (calc) SODIUM (test code = 2951-2) 137 mmol/L POTASSIUM (test code = 2823-3) 4.3 mmol/L CHLORIDE (test code = 2075-0) 102 mmol/L CARBON DIOXIDE (test code = 2027-) 31 mmol/L CALCIUM (test code = 07862-3) 9.7 mg/dL PROTEIN, TOTAL (test code = 2885-2) 7.6 g/dL ALBUMIN (test code = 1751-7) 4.7 g/dL GLOBULIN (test code = 92748-4) 2.9 g/dL(calc) ALBUMIN/GLOBULIN RATIO (test code = 1759-0) 1.6 (calc) BILIRUBIN, TOTAL (test code = 1975-2) 1.8 mg/dL ALKALINE PHOSPHATASE (test code = 6768-6) 93 U/L AST (test code = 1920-8) 19 U/L ALT (test code = 1742-6) 20 U/L Jefferson Ervin LebeauLIPID [id number] 00:00:00* Test Item Value Reference Range Interpretation Comme nts CHOLESTEROL, TOTAL (test cod e = 2093-3) 183 mg/dL HDL CHOLESTEROL (test code = 2085-9) 37 mg/dL TRIGLYCERIDES (test code = 2571-8) 196 mg/dL LDL-CHOLESTEROL (test code = 84888-8) 114 mg/dL(calc) CHOL/HDLC RATIO (test code = 9830-1) 4.9 (calc) NON HDL CHOLESTEROL (test code = 86796-0) 146 mg/dL(calc) Jefferson Ervin JevonCOMPREHENSIVE METABOLIC [id number] 00:00:00* Test Item Value Reference Range Interpretation Comme nts GLUCOSE (test code = 2217) 104 MG/DL BUN (test code = 2208) 12 MG/DL CREATININE (test code = 2214) 0.97 MG/DL eGFR (2020 CKD-EPI) (test code = 30859) 110 ML/MIN/1.73 CALC BUN/CREAT (test code = 2235) 12 RATIO SODIUM (test code = 2231) 140 MEQ/L POTASSIUM (test code = 2228) 4.4 MEQ/L CHLORIDE (test code = 2215) 105 MEQ/L CARBON DIOXIDE (test code = 2206) 21 MEQ/L CALCIUM (test code = 2209) 9.3 MG/DL PROTEIN, TOTAL (test code = 2229) 7.0 G/DL ALBUMIN (test code = 2201) 4.7 G/DL CALC GLOBULIN (test code = 2240) 2.3 G/DL CALC A/G RATIO (test code = 2234) 2.0 RATIO BILIRUBIN, TOTAL (test code = 2207) 1.0 MG/DL ALKALINE PHOSPHATASE (test code = 2204) 102 U/L AST (test code = 2218) 29 U/L ALT (test code = 2219) 27 U/L Jefferson EscotoLIPID [id number] 00:00:00* Test Item Value Reference Range Interpretation Comme nts CHOLESTEROL (test code = 2210) 197 MG/DL TRIGLYCERIDES (test code = 2232) 117 MG/DL HDL CHOLESTEROL (test code = 2220) 43 MG/DL CALC LDL CHOL (test code = 2237) 132 MG/DL RISK RATIO LDL/HDL (test cod e = 2238) 3.07 RATIO Jefferson EscotoHEMOGLOBIN [id number] 00:00:00* Test Item Value Reference Range Interpretation Comme nts HEMOGLOBIN A1c (test code = 20531) 5.2 % Jefferson EscotoCOMPREHENSIVE METABOLIC [id number] 00:00:00* Test Item Value Reference Range Interpretation Comme nts GLUCOSE (test code = 2217) 104 MG/DL BUN (test code = 2208) 12 MG/DL CREATININE (test code = 2214) 0.97 MG/DL eGFR (2020 CKD-EPI) (test code = 36676) 110 ML/MIN/1.73 CALC BUN/CREAT (test code = 2235) 12 RATIO SODIUM (test code = 2231) 140 MEQ/L POTASSIUM (test code = 2228) 4.4 MEQ/L CHLORIDE (test code = 2215) 105 MEQ/L CARBON DIOXIDE (test code = 2206) 21 MEQ/L CALCIUM (test code = 2209) 9.3 MG/DL PROTEIN, TOTAL (test code = 2229) 7.0 G/DL ALBUMIN (test code = 2201) 4.7 G/DL CALC GLOBULIN (test code = 2240) 2.3 G/DL CALC A/G RATIO (test code = 2234) 2.0 RATIO BILIRUBIN, TOTAL (test code = 2207) 1.0 MG/DL ALKALINE PHOSPHATASE (test code = 2204) 102 U/L AST (test code = 2218) 29 U/L ALT (test code = 2219) 27 U/L Jefferson EscotoLIPID [id number] 00:00:00* Test Item Value Reference Range Interpretation Comme nts CHOLESTEROL (test code = 2210) 197 MG/DL TRIGLYCERIDES (test code = 2232) 117 MG/DL HDL CHOLESTEROL (test code = 2220) 43 MG/DL CALC LDL CHOL (test code = 2237) 132 MG/DL RISK RATIO LDL/HDL (test cod e = 2238) 3.07 RATIO Jefferson EscotoHEMOGLOBIN [id number] 00:00:00* Test Item Value Reference Range Interpretation Comme nts HEMOGLOBIN A1c (test code = 61660) 5.2 % Jefferson EscotoCOMPREHENSIVE METABOLIC [id number] 00:00:00* Test Item Value Reference Range Interpretation Comme nts GLUCOSE (test code = 2217) 104 MG/DL BUN (test code = 2208) 12 MG/DL CREATININE (test code = 2214) 0.97 MG/DL eGFR (2020 CKD-EPI) (test code = 66176) 110 ML/MIN/1.73 CALC BUN/CREAT (test code = 2235) 12 RATIO SODIUM (test code = 2231) 140 MEQ/L POTASSIUM (test code = 2228) 4.4 MEQ/L CHLORIDE (test code = 2215) 105 MEQ/L CARBON DIOXIDE (test code = 2206) 21 MEQ/L CALCIUM (test code = 2209) 9.3 MG/DL PROTEIN, TOTAL (test code = 2229) 7.0 G/DL ALBUMIN (test code = 2201) 4.7 G/DL CALC GLOBULIN (test code = 2240) 2.3 G/DL CALC A/G RATIO (test code = 2234) 2.0 RATIO BILIRUBIN, TOTAL (test code = 2207) 1.0 MG/DL ALKALINE PHOSPHATASE (test code = 2204) 102 U/L AST (test code = 2218) 29 U/L ALT (test code = 2219) 27 U/L Jefferson Ervin AustinLIPID [id number] 00:00:00* Test Item Value Reference Range Interpretation Comme nts CHOLESTEROL (test code = 2210) 197 MG/DL TRIGLYCERIDES (test code = 2232) 117 MG/DL HDL CHOLESTEROL (test code = 2220) 43 MG/DL CALC LDL CHOL (test code = 2237) 132 MG/DL RISK RATIO LDL/HDL (test cod e = 2238) 3.07 RATIO Jefferson EscotoHEMOGLOBIN [id number] 00:00:00* Test Item Value Reference Range Interpretation Comme nts HEMOGLOBIN A1c (test code = 02737) 5.2 % Jefferson EscotoCOMPREHENSIVE METABOLIC [id number] 00:00:00* Test Item Value Reference Range Interpretation Comme nts GLUCOSE (test code = 2217) 104 MG/DL BUN (test code = 2208) 12 MG/DL CREATININE (test code = 2214) 0.97 MG/DL eGFR (2020 CKD-EPI) (test code = 07283) 110 ML/MIN/1.73 CALC BUN/CREAT (test code = 2235) 12 RATIO SODIUM (test code = 2231) 140 MEQ/L POTASSIUM (test code = 2228) 4.4 MEQ/L CHLORIDE (test code = 2215) 105 MEQ/L CARBON DIOXIDE (test code = 2206) 21 MEQ/L CALCIUM (test code = 2209) 9.3 MG/DL PROTEIN, TOTAL (test code = 2229) 7.0 G/DL ALBUMIN (test code = 2201) 4.7 G/DL CALC GLOBULIN (test code = 2240) 2.3 G/DL CALC A/G RATIO (test code = 2234) 2.0 RATIO BILIRUBIN, TOTAL (test code = 2207) 1.0 MG/DL ALKALINE PHOSPHATASE (test code = 2204) 102 U/L AST (test code = 2218) 29 U/L ALT (test code = 2219) 27 U/L Jefferson Ervin AustinLIPID [id number] 00:00:00* Test Item Value Reference Range Interpretation Comme nts CHOLESTEROL (test code = 2210) 197 MG/DL TRIGLYCERIDES (test code = 2232) 117 MG/DL HDL CHOLESTEROL (test code = 2220) 43 MG/DL CALC LDL CHOL (test code = 2237) 132 MG/DL RISK RATIO LDL/HDL (test cod e = 2238) 3.07 RATIO Jefferson EscotoHEMOGLOBIN [id number] 00:00:00* Test Item Value Reference Range Interpretation Comme nts HEMOGLOBIN A1c (test code = 31164) 5.2 % Jefferson EscotoCOMPREHENSIVE METABOLIC [id number] 00:00:00* Test Item Value Reference Range Interpretation Comme nts GLUCOSE (test code = 2217) 104 MG/DL BUN (test code = 2208) 12 MG/DL CREATININE (test code = 2214) 0.97 MG/DL eGFR (2020 CKD-EPI) (test code = 49869) 110 ML/MIN/1.73 CALC BUN/CREAT (test code = 2235) 12 RATIO SODIUM (test code = 2231) 140 MEQ/L POTASSIUM (test code = 2228) 4.4 MEQ/L CHLORIDE (test code = 2215) 105 MEQ/L CARBON DIOXIDE (test code = 2206) 21 MEQ/L CALCIUM (test code = 2209) 9.3 MG/DL PROTEIN, TOTAL (test code = 2229) 7.0 G/DL ALBUMIN (test code = 2201) 4.7 G/DL CALC GLOBULIN (test code = 2240) 2.3 G/DL CALC A/G RATIO (test code = 2234) 2.0 RATIO BILIRUBIN, TOTAL (test code = 2207) 1.0 MG/DL ALKALINE PHOSPHATASE (test code = 2204) 102 U/L AST (test code = 2218) 29 U/L ALT (test code = 2219) 27 U/L Jefferson EscotoLIPID [id number] 00:00:00* Test Item Value Reference Range Interpretation Comme nts CHOLESTEROL (test code = 2210) 197 MG/DL TRIGLYCERIDES (test code = 2232) 117 MG/DL HDL CHOLESTEROL (test code = 2220) 43 MG/DL CALC LDL CHOL (test code = 2237) 132 MG/DL RISK RATIO LDL/HDL (test cod e = 2238) 3.07 RATIO Jefferson EscotoHEMOGLOBIN [id number] 00:00:00* Test Item Value Reference Range Interpretation Comme nts HEMOGLOBIN A1c (test code = 30546) 5.2 % Jefferson EscotoCOMPREHENSIVE METABOLIC [id number] 00:00:00* Test Item Value Reference Range Interpretation Comme nts GLUCOSE (test code = 2217) 104 MG/DL BUN (test code = 2208) 12 MG/DL CREATININE (test code = 2214) 0.97 MG/DL eGFR (2020 CKD-EPI) (test code = 76544) 110 ML/MIN/1.73 CALC BUN/CREAT (test code = 2235) 12 RATIO SODIUM (test code = 2231) 140 MEQ/L POTASSIUM (test code = 2228) 4.4 MEQ/L CHLORIDE (test code = 2215) 105 MEQ/L CARBON DIOXIDE (test code = 2206) 21 MEQ/L CALCIUM (test code = 2209) 9.3 MG/DL PROTEIN, TOTAL (test code = 2229) 7.0 G/DL ALBUMIN (test code = 2201) 4.7 G/DL CALC GLOBULIN (test code = 2240) 2.3 G/DL CALC A/G RATIO (test code = 2234) 2.0 RATIO BILIRUBIN, TOTAL (test code = 2207) 1.0 MG/DL ALKALINE PHOSPHATASE (test code = 2204) 102 U/L AST (test code = 2218) 29 U/L ALT (test code = 2219) 27 U/L Jefferson Aziza LebeauLIPID [id number] 00:00:00* Test Item Value Reference Range Interpretation Comme nts CHOLESTEROL (test code = 2210) 197 MG/DL TRIGLYCERIDES (test code = 2232) 117 MG/DL HDL CHOLESTEROL (test code = 2220) 43 MG/DL CALC LDL CHOL (test code = 2237) 132 MG/DL RISK RATIO LDL/HDL (test cod e = 2238) 3.07 RATIO Jefferson EscotoHEMOGLOBIN [id number] 00:00:00* Test Item Value Reference Range Interpretation Comme nts HEMOGLOBIN A1c (test code = 39054) 5.2 % Jefferson Ervin JevonCOMPREHENSIVE METABOLIC [id number] 00:00:00* Test Item Value Reference Range Interpretation Comme nts GLUCOSE (test code = 2217) 104 MG/DL BUN (test code = 2208) 12 MG/DL CREATININE (test code = 2214) 0.97 MG/DL eGFR (2020 CKD-EPI) (test code = 11453) 110 ML/MIN/1.73 CALC BUN/CREAT (test code = 2235) 12 RATIO SODIUM (test code = 2231) 140 MEQ/L POTASSIUM (test code = 2228) 4.4 MEQ/L CHLORIDE (test code = 2215) 105 MEQ/L CARBON DIOXIDE (test code = 2206) 21 MEQ/L CALCIUM (test code = 2209) 9.3 MG/DL PROTEIN, TOTAL (test code = 2229) 7.0 G/DL ALBUMIN (test code = 2201) 4.7 G/DL CALC GLOBULIN (test code = 2240) 2.3 G/DL CALC A/G RATIO (test code = 2234) 2.0 RATIO BILIRUBIN, TOTAL (test code = 2207) 1.0 MG/DL ALKALINE PHOSPHATASE (test code = 2204) 102 U/L AST (test code = 2218) 29 U/L ALT (test code = 2219) 27 U/L Jefferson EscotoLIPID [id number] 00:00:00* Test Item Value Reference Range Interpretation Comme nts CHOLESTEROL (test code = 2210) 197 MG/DL TRIGLYCERIDES (test code = 2232) 117 MG/DL HDL CHOLESTEROL (test code = 2220) 43 MG/DL CALC LDL CHOL (test code = 2237) 132 MG/DL RISK RATIO LDL/HDL (test cod e = 2238) 3.07 RATIO Jefferson EscotoHEMOGLOBIN [id number] 00:00:00* Test Item Value Reference Range Interpretation Comme nts HEMOGLOBIN A1c (test code = 43294) 5.2 % Jefferson Ervin AustinCT/NG, TMA, [id number] 00:00:00* Test Item Value Reference Range Interpretation Comme nts CHLAMYDIA, NAAT, URINE (test code = 30650) NEGATIVE GONORRHEA, NAAT, URINE (test code = 77233) NEGATIVE Jefferson EscotoRPR REFLEX TO T. PALLIDUM - [id number] 00:00:00* Test Item Value Reference Range Interpretation Comme nts RPR (test code = 68644) NON-REACTIVE RPR TITER (test code = 3500) NOT INDIC. TITER Jefferson EscotoHIV 1/2 4TH GEN, RFLX [id number] 00:00:00* Test Item Value Reference Range Interpretation Comme nts HIV 1/2 4TH GEN, RFLX CONF ( test code = 3514) NON-REACTIVE Jefferson Ervin JevonCT/NG, TMA, [id number] 00:00:00* Test Item Value Reference Range Interpretation Comme nts CHLAMYDIA, NAAT, URINE (test code = 05233) NEGATIVE GONORRHEA, NAAT, URINE (test code = 94218) NEGATIVE [facility] Ervin AustinRPR REFLEX TO T. PALLIDUM - [id number] 00:00:00* Test Item Value Reference Range Interpretation Comme nts RPR (test code = 87011) NON-REACTIVE RPR TITER (test code = 3500) NOT INDIC. TITER Jefferson EscotoHIV 1/2 4TH GEN, RFLX [id number] 00:00:00* Test Item Value Reference Range Interpretation Comme nts HIV 1/2 4TH GEN, RFLX CONF ( test code = 3514) NON-REACTIVE Jefferson Aziza AustinCT/NG, TMA, [id number] 00:00:00* Test Item Value Reference Range Interpretation Comme nts CHLAMYDIA, NAAT, URINE (test code = 95766) NEGATIVE GONORRHEA, NAAT, URINE (test code = 97493) NEGATIVE Jeffesron Ervni AustinRPR REFLEX TO T. PALLIDUM - [id number] 00:00:00* Test Item Value Reference Range Interpretation Comme nts RPR (test code = 92994) NON-REACTIVE RPR TITER (test code = 3500) NOT INDIC. TITER Jefferson EscotoHIV 1/2 4TH GEN, RFLX [id number] 00:00:00* Test Item Value Reference Range Interpretation Comme nts HIV 1/2 4TH GEN, RFLX CONF ( test code = 3514) NON-REACTIVE Jefferson Ervin AustinCT/NG, TMA, [id number] 00:00:00* Test Item Value Reference Range Interpretation Comme nts CHLAMYDIA, NAAT, URINE (test code = 18946) NEGATIVE GONORRHEA, NAAT, URINE (test code = 46150) NEGATIVE [facility] Ervin AustinRPR REFLEX TO T. PALLIDUM - [id number] 00:00:00* Test Item Value Reference Range Interpretation Comme nts RPR (test code = 36054) NON-REACTIVE RPR TITER (test code = 3500) NOT INDIC. TITER Jefferson EscotoHIV 1/2 4TH GEN, RFLX [id number] 00:00:00* Test Item Value Reference Range Interpretation Comme nts HIV 1/2 4TH GEN, RFLX CONF ( test code = 3514) NON-REACTIVE Jefferson F AustinCT/NG, TMA, [id number] 00:00:00* Test Item Value Reference Range Interpretation Comme nts CHLAMYDIA, NAAT, URINE (test code = 34398) NEGATIVE GONORRHEA, NAAT, URINE (test code = 53728) NEGATIVE Jefferson F AustinRPR REFLEX TO T. PALLIDUM - [id number] 00:00:00* Test Item Value Reference Range Interpretation Comme nts RPR (test code = 80989) NON-REACTIVE RPR TITER (test code = 3500) NOT INDIC. TITER Jefferson Ervin AustinHIV 1/2 4TH GEN, RFLX [id number] 00:00:00* Test Item Value Reference Range Interpretation Comme nts HIV 1/2 4TH GEN, RFLX CONF ( test code = 3514) NON-REACTIVE Jefferson F AustinCT/NG, TMA, [id number] 00:00:00* Test Item Value Reference Range Interpretation Comme nts CHLAMYDIA, NAAT, URINE (test code = 97723) NEGATIVE GONORRHEA, NAAT, URINE (test code = 94258) NEGATIVE Jefferson F AustinRPR REFLEX TO T. PALLIDUM - [id number] 00:00:00* Test Item Value Reference Range Interpretation Comme nts RPR (test code = 51574) NON-REACTIVE RPR TITER (test code = 3500) NOT INDIC. TITER [facility] Ervin AustinHIV 1/2 4TH GEN, RFLX [id number] 00:00:00* Test Item Value Reference Range Interpretation Comme nts HIV 1/2 4TH GEN, RFLX CONF ( test code = 3514) NON-REACTIVE Jefferson F AustinCT/NG, TMA, [id number] 00:00:00* Test Item Value Reference Range Interpretation Comme nts CHLAMYDIA, NAAT, URINE (test code = 34353) NEGATIVE GONORRHEA, NAAT, URINE (test code = 62180) NEGATIVE Jefferson F AustinRPR REFLEX TO T. PALLIDUM - [id number] 00:00:00* Test Item Value Reference Range Interpretation Comme nts RPR (test code = 25972) NON-REACTIVE RPR TITER (test code = 3500) NOT INDIC. TITER Jefferson EscotoHIV 1/2 4TH GEN, RFLX [id number] 00:00:00* Test Item Value Reference Range Interpretation Comme nts HIV 1/2 4TH GEN, RFLX CONF ( test code = 3514) NON-REACTIVE Jefferson Escoto[L] [id number]-jk-Sweuswr [id number] 12:35:00* Test Item Value Reference Range Interpretation Comme [facility] Xiftu-nb-Alhmjkp Protocol (t est code = Eixdy-fx-Tftemfh Protocol) Performed [facility][L] Drug Profile [id number] 12:35:00* Test Item Value Reference Range Interpretation Comments Ethanol, Urine (test code = Ethanol, Urine) Negative Cutoff=0.020 Amphetamines, Urine (test code = 36652-3) Negative Vpfqgj=6107 Amphetamine test includes Amphetamine and Methamphetamine. Barbituate (test code = 3377-9) Negative Cgbkve=452 Benzodiazepines (test code = 3390-2) Negative Blycor=693 Cannabinoids (test code = 91179-4) Negative Cutoff=20 Cocaine (Metabolite) (test code = 3393-6) Negative Zfdweu=134 Opiates (test code = 79479-1) Negative Lmpdpt=180 Opiate test incl udes Codeine, Morphine, Hydromorphone, Hydrocodone. Oxycodone/Oxymorpon e, Urine (test code = 47470-8) Negative Ybttkd=044 Test includes Ox ycodone and Oxymorphone Phencyclidine (test code = 3936-2) Negative Cutoff=25 Methadone (test code = 3773-9) Negative Dwfnop=407 Propoxyphene (test code = 23371-9) Negative Qvjlzm=588 Meperidine (test code = 3746-5) Negative Fgtbez=051 This test was de veloped and its performance characteristicsdetermined by [facility]. It has not been cleared or approvedby the Food and Drug Administration. Tramadol (test code = 35244-8) Negative Yyajyn=588 Creatinine, Urine (test code = 2161-8) 263.1 mg/dL 20.0-300.0 [facility] Notes Date/Time Note Provider Source Jefferson Escoto [facility]2025-05-12 00:00:00 Jefferson Escoto [facility]2025-05-05 00:00:00 [facility]2025-04-11 00:00:00 [facility]2025-03-17 00:00:00 [facility]2025-03-10 00:00:00 [facility]2024-02-19 00:00:00 [facility]
--- NOTE | 2025-02-28 21:11 | RAD REPORT ---
EXAM: Scrotum Testicles HISTORY: 29 years Male PAIN COMPARISON: None TECHNIQUE: Multiplanar grayscale and color Doppler images were obtained in a testicular/scrotal ultra sound. Spectral analysis of the Doppler waveforms of the testicles were performed. FINDINGS: Right testicle: Normal in echogenicity. No focal mass. Normal internal flow. The right testicle jaime ures 4.5 x 2.3 x 2.6 cm with volume of 14.1 mL. Left testicle: Normal in echogenicity. No focal mass. Normal internal flow. The left testicle measur es 4.7 x 2.4 x 3.1 cm with volume of 17.8 mL. Right epididymis. No epididymal cyst. Normal internal flow. Left epididymis. No epididymal cyst. Normal internal flow. No significant hydroceles. No varicocele. IMPRESSION: No significant scrotal/testicular abnormality Bilateral testicular blood flow.
--- NOTE | 2025-02-28 21:26 | EDPHYS ---
Physician Documentation [facility] Name: Anand Hernandez III Age: 29 yrs Sex: Male : 1995 Arrival Date: 02/28/2025 Time: 20:11 Bed 18 Private MD: ED Physician Messi Nunez HPI: 02/28 20:47 This 29 yrs old Male presents to ER via Ambulatory with complaints of rn Testicular Pain. 20:47 Patient reports intermittent left testicular pain for the last week or so. Seen by PCP rn and put on antibiotics despite urinalysis being normal. Patient reports has been having this problem intermittently since high school and feels that his testicle wants to twist so he repositions it and feels better sometimes. Sometimes does not make a difference. Patient reports some improvement with elevation of testicle. No fever or chills. No hematuria. No urinary symptoms. No drainage. No swelling or discoloration.. Historical: - Allergies: 20:26 PENICILLINS; cp4 - Immunization history:: Adult Immunizations up to date. - Infectious Disease History:: Denies. - Social history:: Smoking status: Patient denies any tobacco usage or history of. - Family history:: not pertinent. - Hospitalizations: : No recent hospitalization is reported. ROS: 20:47 Constitutional: Negative for fever, chills, and weight loss, Abdomen/GI: Negative for rn abdominal pain, nausea, vomiting, diarrhea, and constipation, : Positive for left testicular pain Exam: 20:53 Constitutional: This is a well developed, well nourished patient who is awake, alert, rn and in no acute distress. Abdomen/GI: Soft, nontender, no inguinal tenderness or masses Male : Normal genitalia with no discharge or lesions. No focal tenderness. No masses. No discoloration or thickening of scrotal skin. Vital Signs: 20:25 BP 154 / 94; Pulse 106; Resp 18; Temp 98.3; Pulse Ox 96% ; Weight 122.47 kg; Height 5 cp4 ft. 11 in. ; Pain 4/10; 21:15 BP 127 / 65; Pulse 72; Resp 97; Pulse Ox 100% ; rg5 20:25 Body Mass Index 37.66 (122.47 kg, 180.34 cm) cp4 20:25 Pain Scale: Adult cp4 MDM: 20:17 Medical Screening Exam initiated rn 21:24 Differential diagnosis: Testicular torsion, varicocele, hydrocele, nonspecific pain, rn hernia. Data reviewed: vital signs, nurses notes, radiologic studies, ultrasound, and as a result, I will discharge patient. Counseling: I had a detailed discussion with the patient and/or guardian regarding the historical points, exam findings, and any diagnostic results supporting the discharge/admit diagnosis, radiology results, the need for outpatient follow up, to return to the emergency department if symptoms worsen or persist or if there are any questions or concerns that arise at home. Special discussion: I discussed with the patient/guardian in detail that at this point there is no indication for admission to the hospital. It is understood, however, that if the symptoms persist or worsen the patient needs to return immediately for re-evaluation. Based on the history and exam findings, there is no indication for further emergent testing or inpatient evaluation. I discussed with the patient/guardian the need to see the urologist for further evaluation of the symptoms. ED course: No acute findings on ultrasound. Patient already status post antibiotics and had negative UA with PCP so not repeated here as he does not have any urinary symptoms. Will discharge home with urology follow-up.. 02/28 20:17 Order name: US Scrotum Testicles; Complete Time: 21:12 rn Administered Medications: No medications were administered Disposition Summary: 02/28/25 21:25 Discharge Ordered Notes: Location: Home rn Problem: an ongoing problem rn Symptoms: have improved rn Condition: Stable rn Diagnosis - Left testicular pain rn Followup: rn - With: Ajay Doe MD - When: As needed - Reason: Recheck today's complaints, Re-evaluation by your physician Forms: - Medication Reconciliation Form rn - Antibiotic qa intern - Prescription Opioid Use rn - Patient Portal Instructions rn - Leadership Thank You Letter rn Signatures: Dispatcher [employer] EDMessi Penny MD MD rn Emily Walden cp4 Corrections: (The following items were deleted from the chart) 21: 20:53 Constitutional: This is a well developed, well nourished patient who is awake, rn alert, and in no acute distress. Abdomen/GI: Soft, nontender, no inguinal tenderness or masses rn
--- NOTE | 2025-02-28 21:26 | ER ---
Nurse's Notes [facility] Name: Anand Hernandez III Age: 29 yrs Sex: Male : 1995 Arrival Date: 02/28/2025 Time: 20:11 Bed 18 Private MD: Diagnosis: Left testicular pain Presentation: 02/28 20:25 Chief complaint: Patient states: left testicular pain that started 2 days ago. cp4 Coronavirus screen: Client denies travel out of the [place] in the last 14 days. At this time, the client does not indicate any symptoms associated with coronavirus-19. Ebola Screen: Patient negative for fever greater than or equal to 101.5 degrees Fahrenheit, and additional compatible Ebola Virus Disease symptoms Patient denies exposure to infectious person. Patient denies travel to an Ebola-affected area in the 21 days before illness onset. No symptoms or risks identified at this time. Initial Sepsis Screen: Does the patient meet any 2 criteria? HR > 90 bpm. No. Patient's initial sepsis screen is negative. Does the patient have a suspected source of infection? No. Patient's initial sepsis screen is negative. Risk Assessment: Do you want to hurt yourself or someone else? Patient reports no desire to harm self or others. Onset of symptoms was February 26, 2025. 20:25 Method Of Arrival: Ambulatory cp4 20:25 Acuity: SERGIO 3 cp4 Triage Assessment: 20:26 General: Appears in no apparent distress. uncomfortable, Behavior is calm, cooperative, cp4 appropriate for age. Pain: Complains of pain in pelvis. Historical: - Allergies: 20:26 PENICILLINS; cp4 - Immunization history:: Adult Immunizations up to date. - Infectious Disease History:: Denies. - Social history:: Smoking status: Patient denies any tobacco usage or history of. - Family history:: not pertinent. - Hospitalizations: : No recent hospitalization is reported. Screenin:26 [facility] ED Fall Risk Assessment (Adult) History of falling in the last 3 months, rg5 including since admission No falls in past 3 months (0 pts) Confusion or Disorientation No (0 pts) Intoxicated or Sedated No (0 pts) Impaired Gait No (0 pts) Mobility Assist Device Used No (0 pt) Altered Elimination No (0 pt) Score/Fall Risk Level 0 - 2 = Low Risk Oriented to surroundings, Maintained a safe environment, Hourly rounding (assess needs \T\ fall precautionary measures) done. Abuse screen: Denies threats or abuse. Nutritional screening: No deficits noted. Tuberculosis screening: No symptoms or risk factors identified. Assessment: 20:26 General: Appears in no apparent distress. Behavior is calm, cooperative, appropriate rg5 for age. Pain: Complains of pain in groin Quality of pain is described as aching. Neuro: Level of Consciousness is awake, alert, obeys commands, Oriented to person, place, time, situation. Cardiovascular: Denies chest pain. Respiratory: Airway is patent Trachea midline Respiratory effort is even, unlabored. GI: Abdomen is round non-distended, Abd is soft and non tender. :. : Reports Scrotal pain: sudden onset. EENT: No signs and/or symptoms were reported regarding the EENT system. Derm: Skin is intact, Skin is dry, Skin is normal. Musculoskeletal: Circulation, motion, and sensation intact. Range of motion: intact in all extremities. 21:15 Reassessment: No changes from previously documented assessment. Patient and/or family rg5 updated on plan of care and expected duration. Pain level reassessed. Patient is alert, oriented x 3, equal unlabored respirations, skin warm/dry/pink. Vital Signs: 20:25 BP 154 / 94; Pulse 106; Resp 18; Temp 98.3; Pulse Ox 96% ; Weight 122.47 kg; Height 5 cp4 ft. 11 in. ; Pain 4/10; 21:15 BP 127 / 65; Pulse 72; Resp 97; Pulse Ox 100% ; rg5 20:25 Body Mass Index 37.66 (122.47 kg, 180.34 cm) cp4 20:25 Pain Scale: Adult cp4 ED Course: 20:16 Patient arrived in ED. gm2 20:17 Messi Nunez MD is Attending Physician. rn 20:23 Boom Dorantes RN is Primary Nurse. rg5 20:26 Triage completed. cp4 20:26 Arm band placed on right wrist. Patient placed in waiting room. cp4 20:26 Patient has correct armband on for positive identification. Placed in gown. Bed in low rg5 position. Side rails up X 1. Door closed. Noise minimized. Lights dimmed. Warm blanket given. 20:44 US Scrotum Testicles In Process Unspecified. EDMS 21:16 Patient did not have IV access during this emergency room visit. rg5 21:25 Ajay Doe MD is Referral Physician. rn Administered Medications: No medications were administered Medication: 20:26 VIS not applicable for this client. rg5 Outcome: 21:25 Discharge ordered by . rn 21:37 Patient left the ED. rg5 Signatures: Dispatcher [employer] EDMS Messi Nunez MD MD rn Potter, Christina 4 Shraddha Bacon 2 Boom Dorantes RN RN rg5
[2025-02-28 21:41] VITALS: TEMP 98.3
[2025-02-28 21:43] VITALS: BP 127/65; O2SAT 100
== END 2025-02-28 21:37 | disposition home or self-care (01) ==
LOC: ER 20:11
DX: N50.812 Left testicular pain (principal)
CPT/HCPCS: 76870; 99281